=== PATIENT | male | born 1985 | race Caucasian/White ===

== ENCOUNTER 2016-07-31 18:41 | Emergency (ER) | payer BC ==
[2016-07-31] MEDS ORDERED: diphenhydrAMINE HCL 50 MG/ML VIAL IM ONE (19:24)
[2016-07-31] MEDS ORDERED: diphenhydrAMINE HCL 50 MG/ML VIAL ONE (19:27)
--- NOTE | 2016-07-31 19:37 | ERNOTE ---
Allergy Symptoms - ER Date of Service: 07/31/16 Presenting Symptoms: face swelling, dizziness Time Seen by Provider: 07/31/16 19:13 Source: patient Exam Limitations: no limitations Immunizations: IMMUNIZATION HX Immunizations Up to Date No History of Influenza Vaccine No Hx Pneumococcal Vaccination No Allergies/Adverse Reactions: Allergies tramadol Allergy (Verified 07/31/16 18:53) Hives Home Medications: HOME MEDICATIONS Acetaminophen [Tylenol] 1,000 mg PO PRN PRN 10/30/15 [Last Taken Unknown] Ibuprofen [Motrin] 400 tab PO QID PRN 10/30/15 [Last Taken 10/29/15] Omeprazole 40 mg PO DAILY 10/30/15 [Last Taken 10/29/15] FLUoxetine HCL [Prozac] 20 mg PO DAILY 07/31/16 [Last Taken Unknown] - History of Present Illness Narrative: Pt. comes in with c/o facial flushing, dizziness, and vision changes for two hours after he drank a mikes hard orange soda. Pt. states that facial flushing has resolved but he still has the other symptoms. Pt. denies any cough, SOB, throat swelling, or rash. Pt. denies any headache, NVD, fever, or recent illness. Review of Systems - Review of Systems Constitutional: Present: no symptoms reported. Absent: recent illness, fever, chills, weakness, fatigue, malaise EYE: Present: no symptoms reported ENT: Present: no symptoms reported Respiratory: Present: no symptoms reported. Absent: shortness of breath, cough , wheezing Cardiology: Present: no symptoms reported. Absent: chest pain, palpitations, edema Gastrointestinal/Abdominal: Present: no symptoms reported. Absent: nausea, vomiting, diarrhea Genitourinary: Present: no symptoms reported Musculoskeletal: Present: no symptoms reported. Absent: back pain, joint pain Skin: Present: no symptoms reported Neurological: Present: no symptoms reported. Absent: headache, dizziness/light- headedness All Other Systems: All systems neg except as marked - Patient's Past Medical History Patient History - Medical: Diabetes Type 2, Osteoarthritis Patient History - Cardiac/Respiratory: No pertinent hx Patient History - Cancer: No Hx of Cancer Patient History - Surgical Procedures: Colonoscopy, Vasectomy Patient History - Other: None - Social History Living Situations: home Abuse History: No History of abuse Psych History: Hx of Depression, Current tx/ever been on anti-depressants or anti-anxiety meds Smoking Status: Former smoker Have you smoked in the past 12 months: No Do you dip or chew tobacco: No Alcohol Use: rarely Drug Use: none - Immunizations Immunizations Up to Date: No Hx Pneumococcal Vaccination: No History of Influenza Vaccine: No Physical Exam - Physical Exam General Appearance: Present: wd/wn, alert, no apparent distress Eye Exam: Normal inspection: bilateral, PERRL: bilateral, EOMI: bilateral Ears, Nose, Throat: Present: normal ENT inspection, normal pharynx. Absent: pharyngeal erythema, pharyngeal swelling, tonsillar exudate, tonsillar swelling Neck: Present: normal inspection, nontender. Absent: lymphadenopathy (R), lymphadenopathy (L) Respiratory: Present: no respiratory distress, normal breath sounds, no accessory muscle use, chest nontender, lungs clear Cardiovascular/Chest: Present: regular rate, rhythm, no murmur, normal peripheral pulses Gastrointestinal/Abdominal: Present: normal bowel sounds, nontender, nondistended, soft, no organomegaly Back Exam: Present: normal inspection Extremity Exam: Present: normal inspection Neurological Exam: Present: alert, oriented, normal mood/affect, no motor/ sensory deficits, reel repairer II-XII nml as tested, normal cerebellar test Skin Exam: Present: normal color, warm/dry. Absent: pallor, skin rash ED Progress - Date and Time Seen: Date and Time: 07/31/16 20:25 visual acuity WNL. Pt. improved. - Results and Orders Patient's Lab Results:: I have reviewed the patient's lab results. - Vital Signs Patient's Vital Signs:: I have reviewed the patient's vital signs. Vital Signs: Vital Signs 07/31/16 07/31/16 18:47 19:02 Temperature 37.5 C Pulse Rate 92 Respiratory 18 16 Rate Blood Pressure 146/95 O2 Sat by Pulse 98 Oximetry - Progress/Reassessment Chief Complaint: Allergic Reaction Departure Clinical Impression: Adverse reaction to alcohol products - Departure Disposition: Home self-care Condition: Good Instructions: Drug Allergy, [id number] Additional Instructions: Please follow up with primary provider in 2-3 days if this returns.
[2016-07-31 19:38] LABS: Hematocrit 43.9 % (42.0-52.0); Hemoglobin 14.2 gm/dL (13.5-18.0); Mean Cell Volume 85.1 fl (78-100); Mean Corpuscular Hemoglobin 27.5 pg (27-31); Mean Corpuscular Hgb Conc 32.3 g/dl (32-36); Mean Platelet Volume 10.1 fl (6.0-9.5); Neutrophil # 3.4 K/mm3 (1.3-6.0); Neutrophil % 51.7 % (42-75.0); Platelet Count 242 K/mm3 (150-450); Red Blood Count 5.16 M/mm3 (4.7-6.0); White Blood Count 6.6 K/mm3 (4.0-10.5)
[2016-07-31 19:57] LABS: ALT 53 U/L (19-67); AST 28 U/L (0-48); Albumin * 3.9 gm/dl (3.4-5.0); Alkaline Phosphatase * 111 U/L (50-170); Anion Gap 13.2 mmol/L (6.8-13.8); BUN/Creatinine Ratio 14.8 (9.0-21.6); Bilirubin, Total 0.2 mg/dL (0.0-1.1); Blood Urea Nitrogen 12 mg/dL (6-23); CRP 0.8 mg/dL (0.0-0.9); Ca. Corrected For Albumin 8.3 mg/dL (8.4-10.2); Calcium * 8.5 mg/dL (7.9-10.9); Carbon Dioxide 25.7 mmol/L (24-32.6); Chloride 104 mmol/L (97-106); Glucose * 237 mg/dL (70-110); Potassium 3.9 mmol/L (3.4-4.6); Sodium 139 mmol/L (132-142); Total Protein 8.2 gm/dL (6.2-8.2)
[2016-07-31 20:47] LABS: Urine Appearance Clear; Urine Bilirubin Negative (NEGATIVE); Urine Blood Negative /ul (NEGATIVE); Urine Color Yellow; Urine Ketone Negative (NEGATIVE)
[2016-07-31 20:48] LABS: Urine Protein Negative (NEGATIVE); Urine pH 5.5 pH (5.0-7.0)
[2016-07-31 20:49] LABS: Urine Bacteria None Seen; Urine Nitrite Negative (NEGATIVE); Urine RBC None Seen /hpf (0-5); Urine Urobilinogen Normal (NORMAL); Urine WBC None Seen /hpf (0-5)
[2016-07-31 21:07] VITALS: BP 144/82
== END 2016-07-31 21:05 | disposition home or self-care (01) ==
LOC: ER 18:41
DX: R23.2 Flushing (principal); T50.995A Adverse effect of other drugs, medicaments and biological substances, initial encounter; Z87.891 Personal history of nicotine dependence; F32.9 Major depressive disorder, single episode, unspecified
CPT/HCPCS: 36415; 80053; 81001; 85025; 85652; 86140; 96372; 99284; G0481

== ENCOUNTER 2016-08-25 07:45 | Emergency (ER) | payer BC ==
[2016-08-25 07:53] VITALS: BP 163/80
--- NOTE | 2016-08-25 08:08 | ERNOTE ---
Date of Service: 08/25/16 Time Seen by Provider: 08/25/16 07:56 Stated Complaint: NOT FEELING WELL Presenting Symptoms:: cough Source: patient Exam Limitations: no limitations Immunizations: IMMUNIZATION HX Immunizations Up to Date Yes History of Influenza Vaccine No Hx Pneumococcal Vaccination No Allergies/Adverse Reactions: Allergies tramadol Allergy (Verified 08/25/16 07:53) Hives Home Medications: HOME MEDICATIONS Acetaminophen [Tylenol] 1,000 mg PO PRN PRN 10/30/15 [Last Taken Unknown] Ibuprofen [Motrin] 400 tab PO QID PRN 10/30/15 [Last Taken 10/29/15] Omeprazole 40 mg PO DAILY 10/30/15 [Last Taken 10/29/15] FLUoxetine HCL [Prozac] 20 mg PO DAILY 07/31/16 [Last Taken Unknown] - History of Present Ilness Narrative: Patient presents to the ED relating he needs a work note. He relates he missed work Wednesday and Wednesday and needs a note for that. He relates he had a cough/ congestion and fever. He tells me he is "on the mend now" and feels much better. He denies specific ST. No vomiting. No CONNER. Nasal congestion and cough which are better. No SOB. No CP. Timing: other - improved Frequency/Possible Cause: Denies: frequent episodes Modifying Factors - Improves: Reports: rest Modifying Factors - Worsens: Reports: nothing Associated Symptoms: Reports: cough, nasal congestion. Denies: chest pain/ soreness, shortness of breath, facial pain Prior Treatment: Denies: recently seen Review of Systems - Review of Systems Constitutional: Present: recent illness EYE: Present: no symptoms reported ENT: Present: nose congestion. Absent: ear pain Respiratory: Absent: shortness of breath Cardiology: Absent: chest pain Gastrointestinal/Abdominal: Absent: abdominal pain Genitourinary: Absent: dysuria - Patient's Past Medical History Patient History - Medical: Diabetes Type 2, Osteoarthritis Patient History - Cardiac/Respiratory: No pertinent hx Patient History - Cancer: No Hx of Cancer Patient History - Surgical Procedures: Colonoscopy, Vasectomy Patient History - Other: None - Social History Living Situations: home Abuse History: No History of abuse Psych History: Hx of Depression, Current tx/ever been on anti-depressants or anti-anxiety meds Smoking Status: Former smoker Alcohol Use: rarely Drug Use: none - Immunizations Immunizations Up to Date: Yes Hx Pneumococcal Vaccination: No History of Influenza Vaccine: No Physical Exam - Physical Exam General Appearance: Present: alert, no apparent distress, other - Well hydrated , no distress, speaking in full sentences. Eye Exam: Normal inspection: bilateral, PERRL: bilateral Ears, Nose, Throat: Present: normal ENT inspection, normal pharynx. Absent: abnormal TM (R), abnormal TM (L), nasal congestion, pharyngeal erythema, pharyngeal swelling, tonsillar exudate, dry mucous membranes Neck: Present: normal inspection Respiratory: Present: no respiratory distress, no accessory muscle use, lungs clear Cardiovascular/Chest: Present: regular rate, rhythm Gastrointestinal/Abdominal: Present: normal bowel sounds, nondistended, soft. Absent: tenderness Back Exam: Present: no vertebral tenderness Extremity Exam: Present: normal inspection Neurological Exam: Present: alert, normal mood/affect, no motor/sensory deficits Skin Exam: Absent: skin rash ED Progress - Date and Time Seen: Date and Time: 08/25/16 08:06 - Vital Signs Patient's Vital Signs:: I have reviewed the patient's vital signs. Vital Signs: Vital Signs 08/25/16 07:47 Temperature 37.3 C Pulse Rate 96 Respiratory 16 Rate Blood Pressure 163/80 O2 Sat by Pulse 98 Oximetry - Progress/Reassessment Chief Complaint: Upper Respiratory Symptoms Progress Note-Subjective: 08/25/16 08:07 I offered the patient a full w/u with strep, labs and CXR. He declines this. He understands risks and benefits of not having testing. I find no other clear bacterial source of infection on his exam. I discussed warning signs and reasons to return as well as the need for close f/u. Departure - Departure Clinical Impression: Viral syndrome Disposition: Home self-care Condition: Stable Instructions: Viral Respiratory Infection, [id number] Additional Instructions: Rest. Fluids. I work note has been given at your request. Return if you change your mind about having any of the testing which was offered or if your condition worsens or changes in any way. Follow-up with your doctor in 3 days for a re-check.
== END 2016-08-25 08:08 | disposition home or self-care (01) ==
LOC: ER 07:45
DX: B34.9 Viral infection, unspecified (principal); Z53.29 Procedure and treatment not carried out because of patient's decision for other reasons; F32.89 Other specified depressive episodes

== ENCOUNTER 2017-06-08 16:15 | Emergency (ER) | payer BC ==
[2017-06-08 16:26] VITALS: BP 133/78
--- NOTE | 2017-06-08 17:33 | ERNOTE ---
Date of Service: 06/08/17 Time Seen by Provider: 06/08/17 16:34 Stated Complaint: COUGH Presenting Symptoms:: cough, sore throat Source: patient Exam Limitations: no limitations Immunizations: IMMUNIZATION HX Immunizations Up to Date Yes History of Influenza Vaccine No Hx Pneumococcal Vaccination No Allergies/Adverse Reactions: Allergies tramadol Allergy (Verified 06/08/17 16:26) Hives Home Medications: HOME MEDICATIONS Acetaminophen [Tylenol] 1,000 mg PO PRN PRN 10/30/15 [Last Taken Unknown] Ibuprofen [Motrin] 400 tab PO QID PRN 10/30/15 [Last Taken 10/29/15] Omeprazole 40 mg PO DAILY 10/30/15 [Last Taken 10/29/15] FLUoxetine HCL [Prozac] 20 mg PO DAILY 07/31/16 [Last Taken Unknown] Albuterol Sulfate [Proair Hfa] 2 puff IH Q4H PRN #1 inhaler 06/08/17 [Last Taken Unknown] Azithromycin [Zithromax] 500 mg PO NOW #6 tab 06/08/17 [Last Taken Unknown] - History of Present Ilness Narrative: Patient presents to the ED with well over a week of cough with productive sputum. Sore throat. No known fevers. Sick contacts at home. Still eating and drinking well.Hasn't seen anyone else for this. Relates he will get bronchitis and ABx help. Quit smoking 1 mo ago. No CP. No SOB. No hemoptysis. Timing: constant Severity: moderate Frequency/Possible Cause: Reports: occasional episodes, other - URI Modifying Factors - Improves: Reports: nothing Modifying Factors - Worsens: Reports: nothing Associated Symptoms: Reports: cough, nasal congestion, nasal drainage, sore throat. Denies: chest pain/soreness, shortness of breath, headache Prior Treatment: Denies: recently seen Review of Systems - Review of Systems Constitutional: Absent: fever EYE: Absent: eye discharge ENT: Present: nose congestion, sore throat Respiratory: Present: cough. Absent: shortness of breath Cardiology: Absent: chest pain Gastrointestinal/Abdominal: Absent: abdominal pain Genitourinary: Absent: dysuria Skin: Absent: rash Neurological: Absent: weakness - Patient's Past Medical History Patient History - Medical: Diabetes Type 2, Osteoarthritis Patient History - Cardiac/Respiratory: No pertinent hx Patient History - Cancer: No Hx of Cancer Patient History - Surgical Procedures: Colonoscopy, Vasectomy Patient History - Other: None - Social History Living Situations: home Abuse History: No History of abuse Psych History: Hx of Depression, Current tx/ever been on anti-depressants or anti-anxiety meds Smoking Status: Former smoker Alcohol Use: none Drug Use: none - Immunizations Immunizations Up to Date: Yes Hx Pneumococcal Vaccination: No History of Influenza Vaccine: No Physical Exam - Physical Exam General Appearance: Present: alert, no apparent distress, other - non-toxic, no distress, well hydrated, speaking in full sentences Head Exam: Present: normal inspection, no evidence of injury Eye Exam: Normal inspection: bilateral, PERRL: bilateral Ears, Nose, Throat: Present: nasal congestion, pharyngeal erythema, other - No evidence of FREIGHT TALLIER, RPA or epiglottitis.. Absent: pharyngeal swelling, tonsillar exudate, tonsillar swelling, dry mucous membranes Neck: Present: normal inspection Respiratory: Present: no respiratory distress, normal breath sounds, no accessory muscle use, lungs clear, other - occasional cough. Absent: wheezing Cardiovascular/Chest: Present: regular rate, rhythm, normal peripheral pulses Gastrointestinal/Abdominal: Present: normal bowel sounds, nontender, soft Back Exam: Present: normal range of motion Extremity Exam: Present: normal range of motion Neurological Exam: Present: alert, normal mood/affect, no motor/sensory deficits Skin Exam: Present: normal color, warm/dry ED Progress - Results and Orders Patient's Lab Results:: I have reviewed the patient's lab results. - Vital Signs Patient's Vital Signs:: I have reviewed the patient's vital signs. Vital Signs: Vital Signs 06/08/17 16:22 Temperature 36.5 C Pulse Rate 98 Respiratory 16 Rate Blood Pressure 133/78 O2 Sat by Pulse 97 Oximetry - Progress/Reassessment Chief Complaint: Cough Progress Note-Subjective: 06/08/17 17:26 He relates he normally gets ABx for these bouts and it helps. Given his smoking Hx gale treat with ABx and inhaler. No hypoxia or distress. He feels like going home. I discussed warning signs and reasons to return as well as the need for close f/u. 06/08/17 17:28 No suggestion of PE, CS or other acute life threat. Departure Clinical Impression: Bronchitis - Departure Disposition: Home self-care Condition: Stable Instructions: Acute Bronchitis Additional Instructions: Rest. Fluids. Follow-up with your doctor for a re-check in 3 days. Return for trouble breathing or if your condition worsens or changes in any way. Prescriptions: Albuterol Sulfate [Proair Hfa] 2 puff IH Q4H PRN #1 inhaler PRN Reason: Shortness Of Breath Azithromycin [Zithromax] 500 mg PO NOW #6 tab
== END 2017-06-08 17:35 | disposition home or self-care (01) ==
LOC: ER 16:15
DX: J40 Bronchitis, not specified as acute or chronic; F32.9 Major depressive disorder, single episode, unspecified; Z87.891 Personal history of nicotine dependence